=== PATIENT | female | born 1990 | race Caucasian/White ===

== ENCOUNTER 2019-01-29 13:00 | Emergency (ER) | payer SELFPAY ==
[~2019-01-29] VITALS: Ht 162.6 cm; Wt 75.0 kg
[~2019-01-29 13:00] MED LIST: AMOXICILLIN875 MG OR; CONCEPT OB PO; DENIES CURRENT MEDS; INTEGRA F PO; MIRALAX3350 N1 PO; MONISTAT 72 % VA; NAPROSYN500 MG PO; NO HOME MEDS; RHO (D) IMMUN300 MCG IM; TUBERSOL5 MG/0.1 M ID
[2019-01-29 13:38] LABS: HEMATOCRIT 41.2 % (37.0-47.0); HEMOGLOBIN 13.4 g/dl (12.0-16.0); IMMATURE GRANULOCYTES 0.5 % (0.0-5.0); MEAN CELL VOLUME 81.6 fL CALC (80.0-100.0); MEAN CORPUSCULAR HGB 26.5 pG CALC (26.0-32.0); MEAN CORPUSCULAR HGB CONC 32.5 g/L CALC (32.0-36.0); NEUT# 14.88 thou/uL (2.00-7.15); RED BLOOD COUNT 5.05 mill/uL (4.20-5.60); RED CELL DISTRI WIDTH 14.7 % (11.5-15.5)
[2019-01-29 13:53] LABS: URINE BILIRUBIN - DIPSTICK NEGATIVE (NEGATIVE); URINE BLOOD DIPSTICK NEGATIVE (NEGATIVE); URINE COLOR YELLOW; URINE GLUCOSE - DIPSTICK NEGATIVE (NEGATIVE); URINE KETONE NEGATIVE (NEGATIVE); URINE LEUK ESTERASE NEGATIVE (NEGATIVE); URINE NITRITE - DIPSTICK NEGATIVE (Negative); URINE PH 7.5 (4.5-8.0); URINE PROTEIN - DIPSTICK TRACE mg/dL (NEG-TRACE); URINE UROBILINOGEN - DIPSTICK 0.2 E.U./dL (0.2)
[2019-01-29 13:56] LABS: ALBUMIN 4.5 g/dL (3.2-5.0); ALKALINE PHOSPHATASE 77 u/l (38-126); ANION GAP 18 (6-22 (CALC)); BUN 9 mg/dL (7-17); BUN/CREATININE RATIO 13 (12-20 (CALC)); CARBON DIOXIDE 24 mmol/l (22-30); CHLORIDE 102 mmol/l (95-108); CREATININE 0.7 mg/dL (0.5-1.0); GFR > 60 ML/MIN (>=60 (CALC)); GFR FOR AFR.AMER. > 60 ML/MIN (>=60 (CALC)); LIPASE 172 u/l (23-300); POTASSIUM 4.5 mmol/l (3.5-5.1); SGOT/AST 21 u/l (14-36); SODIUM 139 mmol/l (137-146); TOTAL PROTEIN 7.7 g/dL (6.3-8.2)
[2019-01-29 13:57] LABS: BILIRUBIN, TOTAL 0.7 mg/dL (0.0-1.4)
[2019-01-29 14:39] VITALS: BP 124/89
[2019-01-29] MEDS ORDERED: ONDANSETRON4 MG PO (14:39)
== END 2019-01-29 15:12 | disposition home or self-care (01) | DRG 392 ==
LOC: ED 13:00
PROVIDERS: Family Medicine
DX: K52.9 Noninfective gastroenteritis and colitis, unspecified (principal); F17.200 Nicotine dependence, unspecified, uncomplicated
CPT/HCPCS: Q9967

== ENCOUNTER 2021-03-16 12:28 | Observation (INO) | payer OTHER ==
[~2021-03-16] VITALS: Ht 162.6 cm; Wt 97.0 kg
[~2021-03-16 12:28] MED LIST changes: +ONDANSETRON4 MG PO
--- NOTE | 2021-03-16 12:58 | NUR ---
PT TO ROOM FOR TRIAGE WITH STEADY GAIT.
[2021-03-16 13:54] LABS: HEMATOCRIT 41.8 % (37.0-47.0); HEMOGLOBIN 13.5 g/dl (12.0-16.0); IMMATURE GRANULOCYTES 0.2 % (0.0-5.0); MEAN CELL VOLUME 81.8 fL CALC (80.0-100.0); MEAN CORPUSCULAR HGB 26.4 pG CALC (26.0-32.0); MEAN CORPUSCULAR HGB CONC 32.3 g/dL CAL (32.0-36.0); NEUT# 2.28 thou/uL (2.00-7.15); RED BLOOD COUNT 5.11 mill/uL (4.20-5.60); RED CELL DISTRI WIDTH 15.2 % (11.5-15.5)
--- NOTE | 2021-03-16 13:55 | NUR ---
PT STABLE, RESTING. 3L/NC IN PLACE. SATS IMPROVED TO 95%. NO DISTRESS. NO COMPLAINTS VOICED. BED IN LOW POSITION. CALL LIGHT WITHIN REACH.
[2021-03-16 14:02] LABS: ALBUMIN 4.1 g/dL (3.2-5.0); ALKALINE PHOSPHATASE 47 u/l (38-126); ANION GAP 15 (6-22 (CALC)); BILIRUBIN, TOTAL 0.5 mg/dL (0.0-1.4); BUN 7 mg/dL (7-17); BUN/CREATININE RATIO 8 (12-20 (CALC)); CARBON DIOXIDE 25 mmol/l (22-30); CHLORIDE 101 mmol/l (95-108); CREATININE 0.9 mg/dL (0.5-1.0); GFR > 60 ML/MIN (>=60 (CALC)); GFR FOR AFR.AMER. > 60 ML/MIN (>=60 (CALC)); POTASSIUM 3.6 mmol/l (3.5-5.1); SODIUM 137 mmol/l (137-146); TOTAL PROTEIN 7.2 g/dL (6.3-8.2)
[2021-03-16 14:03] LABS: SGOT/AST 47 u/l (14-36)
--- NOTE | 2021-03-16 14:47 | NUR ---
IV MEDS INFUSING WITHOUT DIFFICULTY. BLANKETS PROVIDED. BED IN LOW POSITION. VITALS UPDATED AND STABLE. MONITORING PT ON ROOM AIR TO SEE IF ABLE TO MAINTAIN SATS ABOVE 90%.
--- NOTE | 2021-03-16 15:45 | NUR ---
PT COMPLETED A 6 MIN WALK TEST ON ROOM AIR. SATS FROM 87-91%. NO DISTRESS. SATS DROPPED WITH COUGH. LILIYA DELGADO NOTIFIED.
[2021-03-16 16:03] LABS: URINE BLOOD DIPSTICK MODERATE (NEGATIVE); URINE GLUCOSE - DIPSTICK NEGATIVE (NEGATIVE); URINE KETONE NEGATIVE (NEGATIVE); URINE LEUK ESTERASE NEGATIVE (NEGATIVE); URINE PROTEIN - DIPSTICK 30 mg/dL (NEG-TRACE); URINE SPECIFIC GRAVITY 1.025
[2021-03-16 16:07] LABS: URINE BILIRUBIN - DIPSTICK NEGATIVE (NEGATIVE); URINE COLOR DK. YELLOW; URINE NITRITE - DIPSTICK NEGATIVE (Negative)
[2021-03-16 16:14] LABS: URINE SQUAMOUS EPITHELIAL CELL MODERATE EPI/hpf (0-FEW)
--- NOTE | 2021-03-16 17:00 | NUR ---
PT STABLE. IV MEDS COMPLETED. PENDING ADMISSION.
--- NOTE | 2021-03-16 17:17 | NUR ---
ATTEMPTED TO CALL REPORT TO [facility]. NURSE TO CALL BACK IN 10MINS
--- NOTE | 2021-03-16 17:30 | NUR ---
RECIEVED REPORT FROM OCTOBER, RN
--- NOTE | 2021-03-16 17:38 | NUR ---
REPORT GIVEN TO LEONARDO PANDA ON [facility].
[2021-03-16 17:50] VITALS: BP 114/62
--- NOTE | 2021-03-16 17:50 | NUR ---
PT ARRIVED TO MED SURG ROOM 288 VIA WHEELCHAIR ACCOMPAINED BY ER STAFF. PT IS A/O X3. ASSESSMENT AND VITALS COMPLETED. RESPIRATIONS ARE EVEN AND UNLABORED 96% ON 2L NC. LUNG SOUNDS ARE DIMINISHED.PRODUCTVE COUGH NOTED PER PT. BOWEL SOUNDS ARE ACTIVE, LBM 03/15/21. HEART RHYTHM NORMAL WITH TELE IN PLACE, SR PER ER MONITORING (8610). PULSES STRONG. #20G LAC FLUSHED, SITE APPEARS HEALTHY AND PATENT. SKIN INTACT. PT DENIES OF ANY PAINS OR DISCOMFORTS AT THIS TIME. ALL SAFETY PRECAUTIONS ARE IN PLACE WITH CALL LIGHT IN REACH. ALLERGIES NOTED, ALLERGY BAND AND FALL RISK BAND APPLIED. PT ORIENTED TO ROOM AND CALL SYSTEM. PT EDUCATED ON PRONING/I.S AND CHAIR. ISOLATION PRECAUTIONS ARE IN PLACE. WILL CONTINUE TO MONITOR
--- NOTE | 2021-03-16 20:00 | NUR ---
PHYSICAL ASSESMENT COMPLETE. PT CURRENTLY DENIES PAIN OR DISCOMFORT. SCHEDULED MEDICATIONS AND PRN MEDICATION ADMINISTERED, SEE E-MAR. PT DENIES ANY NEEDS AT THIS TIME. PLAN OF CARE REVIEWED, PT DENIES QUESTIONS, VERBALIZES UNDERSTANDING. ITEMS WITHIN REACH, BED LOCKED IN LOW POSITION W/ BEDRAILS UP X2. CALL RODRIGUEZ WITHIN REACH, AGREES TO CALL PRN.
--- NOTE | 2021-03-16 23:58 | NUR ---
PT LAYING IN BED WITH EYES CLOSED, APPEARS TO BE SLEEPING, APPEARS COMFORTABLE AND IN NO DISTRESS. RESPIRATIONS REGULAR AND UNLABORED. ITEMS REMAIN WITHIN REACH, CALL RODRIGUEZ REMAINS WITHIN REACH. BED REMAINS LOCKED AND IN LOW POSITION WITH BEDRAILS UP X2. WILL CONTINUE TO MONITOR.
[2021-03-17] VITALS: BP 119/59
[2021-03-17 04:00] VITALS: BP 100/65
--- NOTE | 2021-03-17 04:45 | NUR ---
PT RESTING IN BED, NO SIGNS OF DISTRESS NOTED, RESP EVEN AND UNLABORED. PT VOICES NO NEEDS OR COMPLAINTS AT THIS TIME. CALL LIGHT IN REACH, CONTINUE TO MONITOR.
[2021-03-17 06:01] LABS: HEMATOCRIT 40.2 % (37.0-47.0); HEMOGLOBIN 12.7 g/dl (12.0-16.0); IMMATURE GRANULOCYTES 0.6 % (0.0-5.0); MEAN CELL VOLUME 83.6 fL CALC (80.0-100.0); MEAN CORPUSCULAR HGB 26.4 pG CALC (26.0-32.0); MEAN CORPUSCULAR HGB CONC 31.6 g/dL CAL (32.0-36.0); NEUT# 1.67 thou/uL (2.00-7.15); RED BLOOD COUNT 4.81 mill/uL (4.20-5.60); RED CELL DISTRI WIDTH 15.3 % (11.5-15.5)
[2021-03-17 06:31] LABS: ALBUMIN 3.7 g/dL (3.2-5.0); ALKALINE PHOSPHATASE 46 u/l (38-126); BILIRUBIN, TOTAL 0.4 mg/dL (0.0-1.4); BUN 8 mg/dL (7-17); BUN/CREATININE RATIO 12 (12-20 (CALC)); C-REACTIVE PROTEIN 1.7 mg/dL (0-0.9); CARBON DIOXIDE 26 mmol/l (22-30); CHLORIDE 104 mmol/l (95-108); CREATININE 0.7 mg/dL (0.5-1.0); GFR > 60 ML/MIN (>=60 (CALC)); GFR FOR AFR.AMER. > 60 ML/MIN (>=60 (CALC)); SGOT/AST 61 u/l (14-36); SODIUM 138 mmol/l (137-146); TOTAL PROTEIN 6.7 g/dL (6.3-8.2)
[2021-03-17 06:45] LABS: ANION GAP 12 (6-22 (CALC)); POTASSIUM 4.4 mmol/l (3.5-5.1)
--- NOTE | 2021-03-17 07:00 | NUR ---
RECIEVED REPORT FROM LEONARDO TOLEDO
[2021-03-17 07:35] VITALS: BP 100/69
--- NOTE | 2021-03-17 07:35 | NUR ---
PT RESTING IN SEMI FOWLERS POSITION. PT IS A/O X3. ASSESSMENT AND VITALS COMPLETED. RESPIRATIONS ARE EVEN AND UNLABORED ON 2L NC, 92%. LUNG SOUNDS ARE DIMINISHED. NONPRODUCTIVE COUGH NOTED. PT REFUSES MEDICATION TO ASSIST. HEART RHYTHM NORMAL WITH TELE IN PLACE. BOWEL SOUNDS ARE ACTIVE X4. #20G LAC INFUSING WITH IVF PER ORDER, SITE REMAINS HEALTHY AND PATENT. SKIN INTACT. PT DENIES OF ANY PAINS OR DISCOMFORTS AT THIS TIME. PT STATES SHE WANTS TO GO HOME. RAG INSPECTOR EXPLAINED THAT MD WILL BE IN TO DISCUSS POC. PT VERBALZIED UNDERSTANDING. PT EDUCATED ON PRONING/CHAIR/I.S. PT VERBALIZED UNDERSTANDING. ALL SAFETY AND ISOALTION PRECAUTIONS ARE IN PLACE WITH CALL LIGHT IN REACH. WILL CONTINUE TO MONITOR.
--- NOTE | 2021-03-17 09:05 | NUR ---
DR RAMIREZ AND SHAWNA,ANSARAH AT BEDSIDE
--- NOTE | 2021-03-17 09:29 | NUR ---
PT 90% RESTING IN SEMI FOWLERS POSITION ON ROOM AIR. O2 DESAT TO 87% UPON AMBULATING. O2 91-92% ON 2L NC UPON AMBULATING. 93% WHILE RESTING BACK IN BED. EXCERTIONAL SOB NOTED. PT EDUCATED ON BREATHING EXCERISING. ALL SAFTEY PRECAUTIONS ARE IN PLACE WITH CALL LIGHT IN REACH. WILL CONTINUE TO MONITOR
[2021-03-17] MEDS ORDERED: DEXAMETHASON6 MG PO (09:51)
[2021-03-17] MEDS ORDERED: ZITHROMAX250 MG PO (09:51)
[2021-03-17] MEDS ORDERED: ASPIRIN REGULA325 M1 PO (09:52)
[2021-03-17] MEDS ORDERED: ZOFRAN4 MG/TAB PO (09:52)
[2021-03-17] MEDS ORDERED: TESSALON PERLE100 MG PO (09:54)
[2021-03-17] MEDS ORDERED: PROAIR HFA108 MCG/AC IN (10:25)
[2021-03-17 10:30] VITALS: BP 102/63
--- NOTE | 2021-03-17 11:21 | NUR ---
PT RESTING IN SEMI FOWLERS POSITION WATCHING TV.RESPIRATIONS ARE EVEN AND UNLABORED ON 2L NC. #20G LAC INFUSING WITH IVF PER ORDER, SITE REMAINS HEALTHY AND PATENT. TELE MONIOTRING IN PLACE. PT DENIES OF ANY PAINS OR DISCOMFORTS. INFORMED OF WAIT FOR HOME OXYGEN TIME. PT VERBALIZED UNDERSTANDING. ALL SAFETY PRECAUTIONS ARE IN PLACE WITH CALL LIGHT IN REACH. WILL CONTINUE TO MONITOR.
[2021-03-17 14:36] VITALS: BP 99/69
--- NOTE | 2021-03-17 16:17 | NUR ---
PT EDUCATED ON DC INSTRUCTIONS, NEW MEDICATIONS SENT TO [facility] AND HOME O2. PT VERBLAIZED UNDERSTANDING. IV REMOVED BWITH CATH STILL INTACT. TELE MONITORING REMOVED. ER NOTIFIED. TRANSPORTATION CALLED. WILL CONTINUE TO MONITOR.
--- NOTE | 2021-03-17 16:35 | NUR ---
Discharge instructions given. Patient verbalizes understanding of same. Discharged in stable condition via Wheelchair to Home with staff. All belongings sent with pt. PT DC HOME WITH ALL DC INSTRUCTIONS, PERSONAL BELONGINGS AND HOME O2 SYSTEM IN STABLE CONDITION ACCOMPAINED BY JARETH CNA.
--- NOTE | 2021-03-19 10:49 | NUR ---
Pneumonia post discharge follow up call completed today. Pt. states she is doing fairly well. She is using oxygen most of the time, day and night. Oxygen saturation remains around 91. Pt. obtrained prescribed medications and has been taking without issue. No follow up appt has been scheduled. Pt. states she does not have a PCP. Explained I cannot make surggestions as it is her decision. I did discuss possible options she could pursue. Pt. staes she will call someone today and make an appointment. No needs or concerns expressed by patient at this time. Appreciative of call.
== END 2021-03-17 16:53 | disposition home or self-care (01) ==
LOC: ED 12:28 → ED-I 15:05 → ED 15:16 → ED-I 15:17 → MS2 17:25
PROVIDERS: Emergency Medicine; Nurse Practitioner; ADMIT Hospitalist; ATTEND Hospitalist
DX: U07.1 COVID-19 (principal); J12.82 Pneumonia due to coronavirus disease 2019; R09.02 Hypoxemia; J45.909 Unspecified asthma, uncomplicated; F17.210 Nicotine dependence, cigarettes, uncomplicated
CPT/HCPCS: G0378; J1650

== ENCOUNTER 2021-12-29 19:21 | Emergency (ER) | payer OTHER ==
[~2021-12-29] VITALS: Ht 162.6 cm; Wt 100.0 kg
[~2021-12-29 19:21] MED LIST changes: +ASPIRIN REGULA325 M1 PO; +DEXAMETHASON6 MG PO; +PROAIR HFA108 MCG/AC IN; +TESSALON PERLE100 MG PO; +ZITHROMAX250 MG PO; +ZOFRAN4 MG/TAB PO
[2021-12-29 19:59] LABS: HEMATOCRIT 37.4 % (37.0-47.0); HEMOGLOBIN 11.9 g/dl (12.0-16.0); IMMATURE GRANULOCYTES 0.2 % (0.0-5.0); MEAN CELL VOLUME 86.4 fL CALC (80.0-100.0); MEAN CORPUSCULAR HGB 27.5 pG CALC (26.0-32.0); MEAN CORPUSCULAR HGB CONC 31.8 g/dL CAL (32.0-36.0); NEUT# 5.74 thou/uL (2.00-7.15); RED BLOOD COUNT 4.33 mill/uL (4.20-5.60); RED CELL DISTRI WIDTH 15.4 % (11.5-15.5)
[2021-12-29 20:13] LABS: ALBUMIN 4.1 g/dL (3.2-5.0); BILIRUBIN, TOTAL 0.4 mg/dL (0.0-1.4); BUN 6 mg/dL (7-17); BUN/CREATININE RATIO 6 (12-20 (CALC)); CARBON DIOXIDE 25 mmol/l (22-30); CHLORIDE 105 mmol/l (95-108); CREATININE 0.9 mg/dL (0.5-1.0); GFR FOR AFR.AMER. > 60 ML/MIN (>=60 (CALC)); GFR OTHER RACES > 60 ML/MIN (>=60 (CALC)); SGOT/AST 25 u/l (14-36); SODIUM 139 mmol/l (137-146)
[2021-12-29 20:14] LABS: ALKALINE PHOSPHATASE 71 u/l (38-126); ANION GAP 12 (6-22 (CALC)); POTASSIUM 3.4 mmol/l (3.5-5.1)
[2021-12-29 20:15] VITALS: BP 117/82
[2021-12-29 20:30] VITALS: BP 109/70
[2021-12-29 20:30] LABS: BETA-HCG, QUANT(RESULT NUMBER) 13 mIU/mL
[2021-12-29 20:49] VITALS: BP 109/70
== END 2021-12-29 20:58 | disposition home or self-care (01) ==
LOC: ED 19:21
PROVIDERS: Nurse Practitioner
DX: O20.0 Threatened abortion (principal); O99.331 Smoking (tobacco) complicating pregnancy, first trimester; F17.200 Nicotine dependence, unspecified, uncomplicated; Z3A.01 Less than 8 weeks gestation of pregnancy

== ENCOUNTER 2022-01-30 23:30 | Emergency (ER) | payer BC, OTHER ==
[~2022-01-30] VITALS: Ht 162.6 cm; Wt 97.7 kg
[2022-01-30 23:45] VITALS: BP 123/84
[2022-01-31] VITALS: BP 120/77
[2022-01-31 00:15] VITALS: BP 111/74
[2022-01-31] MEDS ORDERED: BACTRIM DS1 TAB PO (00:28)
[2022-01-31] MEDS ORDERED: GENTAMICIN SULF5 ML OU (00:28)
[2022-01-31 00:30] VITALS: BP 116/75
[2022-01-31 00:31] VITALS: BP 116/75
== END 2022-01-31 00:39 | disposition home or self-care (01) | DRG 153 ==
LOC: ED 23:30
DX: J01.90 Acute sinusitis, unspecified (principal); B96.89 Other specified bacterial agents as the cause of diseases classified elsewhere; H10.9 Unspecified conjunctivitis; F17.200 Nicotine dependence, unspecified, uncomplicated; Z20.822 Contact with and (suspected) exposure to COVID-19

== ENCOUNTER 2022-03-12 21:11 | Emergency (ER) | payer BC, OTHER ==
[~2022-03-12] VITALS: Ht 162.6 cm; Wt 95.0 kg
[~2022-03-12 21:11] MED LIST changes: +BACTRIM DS1 TAB PO; +GENTAMICIN SULF5 ML OU
[2022-03-12 21:17] VITALS: BP 128/79
[2022-03-12 21:31] VITALS: BP 132/85
[2022-03-12] MEDS ORDERED: CORTISPORIN OTI10 ML AD (21:34)
== END 2022-03-12 22:07 | disposition home or self-care (01) | DRG 156 ==
LOC: ED 21:11
PROC: 3E0234Z Introduction of Serum, Toxoid and Vaccine into Muscle, Percutaneous Approach (ICD-10-PCS; principal; 2022-03-12)
DX: H60.91 Unspecified otitis externa, right ear (principal); F17.210 Nicotine dependence, cigarettes, uncomplicated; Z23 Encounter for immunization

== ENCOUNTER 2022-04-01 13:46 | Emergency (ER) | payer OTHER, BC ==
[~2022-04-01] VITALS: Ht 162.6 cm; Wt 90.0 kg
[~2022-04-01 13:46] MED LIST changes: +CORTISPORIN OTI10 ML AD
[2022-04-01 15:19] VITALS: BP 134/87
== END 2022-04-01 15:25 | disposition home or self-care (01) | DRG 563 ==
LOC: ED 13:46
DX: S63.502A Unspecified sprain of left wrist, initial encounter (principal); M25.512 Pain in left shoulder; F17.210 Nicotine dependence, cigarettes, uncomplicated; V49.40XA Driver injured in collision with unspecified motor vehicles in traffic accident, initial encounter

== ENCOUNTER 2022-08-02 20:58 | Emergency (ER) | payer BC, OTHER ==
[~2022-08-02] VITALS: Ht 162.6 cm; Wt 100.0 kg
[2022-08-02] MEDS ORDERED: PRENATAL1 TA1 PO (21:52)
[2022-08-02 22:50] VITALS: BP 105/77
[2022-08-02 23:00] VITALS: BP 109/70
[2022-08-02 23:15] VITALS: BP 102/66
[2022-08-02 23:30] VITALS: BP 104/67
[2022-08-02 23:43] LABS: URINE BILIRUBIN - DIPSTICK NEGATIVE (NEGATIVE); URINE COLOR YELLOW; URINE GLUCOSE - DIPSTICK NEGATIVE (NEGATIVE); URINE KETONE NEGATIVE (NEGATIVE); URINE LEUK ESTERASE NEGATIVE (NEGATIVE); URINE PH 5.5 (4.5-8.0); URINE PROTEIN - DIPSTICK NEGATIVE (NEG-TRACE); URINE SPECIFIC GRAVITY 1.015; URINE UROBILINOGEN - DIPSTICK 0.2 E.U./dL (0.2)
[2022-08-02 23:45] VITALS: BP 106/67
[2022-08-02 23:46] LABS: URINE BLOOD DIPSTICK NEGATIVE (NEGATIVE); URINE NITRITE - DIPSTICK NEGATIVE (Negative)
[2022-08-03] VITALS: BP 107/67
[2022-08-03 00:15] VITALS: BP 105/65
[2022-08-03 00:30] VITALS: BP 102/66
[2022-08-03 00:45] VITALS: BP 115/77
[2022-08-03 01:00] VITALS: BP 116/79
[2022-08-03 05:00] VITALS: BP 116/79
== END 2022-08-03 05:05 | disposition home or self-care (01) | DRG 833 ==
LOC: ED 20:58
PROVIDERS: Emergency Medicine
DX: O26.891 Other specified pregnancy related conditions, first trimester (principal); Z3A.11 11 weeks gestation of pregnancy; R10.9 Unspecified abdominal pain

== ENCOUNTER 2024-06-11 15:58 | Emergency (ER) | payer BC ==
[~2024-06-11] VITALS: Ht 162.6 cm; Wt 95.2 kg
[2024-06-11] VITALS (7 sets, daily range): BP systolic 110–132; BP diastolic 64–81
[~2024-06-11 15:58] MED LIST changes: +AMOX/K CLAV875 M1 PO; +PRENATAL1 TA1 PO; +ZPAK PO
[2024-06-11] MEDS ORDERED: methylPREDNISolone SODIUM SUCC 125 MG/2 ML SDV IV ONE (16:05)
[2024-06-11] MEDS ORDERED: DiphenhydrAMINE HCL 50 MG/ML SDV IV ONE (16:05)
[2024-06-11] MEDS ORDERED: SODIUM CHLORIDE 0.9% 1,000 ML IV ONE (16:05)
[2024-06-11] MEDS ORDERED: FAMOTIDINE 10MG/ML 2ML SDV IV ONE (16:05)
[2024-06-11] MEDS ORDERED: PREDNISONE20 MG PO (17:10)
== END 2024-06-11 18:40 | disposition home or self-care (01) | DRG 918 ==
LOC: ED 15:58
DX: T63.461A Toxic effect of venom of wasps, accidental (unintentional), initial encounter (principal); F17.200 Nicotine dependence, unspecified, uncomplicated
CPT/HCPCS: J1200

== ENCOUNTER 2024-07-08 08:27 | Emergency (ER) | payer BC ==
[2024-07-08] VITALS (7 sets, daily range): BP systolic 104–123; BP diastolic 66–80
[~2024-07-08] VITALS: Ht 162.6 cm; Wt 95.0 kg
[~2024-07-08 08:27] MED LIST changes: +PREDNISONE20 MG PO
[2024-07-08 09:09] LABS: BASO% 0.6 % (0-3); EOS% 6.9 % (0-8); HEMATOCRIT 34.4 % (37.0-47.0); IMMATURE GRANULOCYTES 0.2 % (0.0-5.0); LYMPH% 34.3 % (15-41); MEAN CELL VOLUME 74.9 fL CALC (80.0-100.0); MONO% 7.5 % (2-13); NEUT# 2.69 thou/uL (2.00-7.15); NEUT% 50.5 % (42-76); RED BLOOD COUNT 4.59 mill/uL (4.20-5.60); RED CELL DISTRI WIDTH 17.6 % (11.5-15.5)
[2024-07-08 09:20] LABS: HCG SERUM/URINE (NEG/POS) NEGATIVE (NEGATIVE)
[2024-07-08 09:23] LABS: CREATININE 0.7 mg/dL (0.5-1.0); POTASSIUM 3.3 mmol/l (3.5-5.1)
[2024-07-08 09:35] LABS: BILIRUBIN, TOTAL 0.4 mg/dL (0.02-1.3)
== END 2024-07-08 10:15 | disposition home or self-care (01) | DRG 195 ==
LOC: ED 08:27
PROVIDERS: Family Medicine
DX: J18.9 Pneumonia, unspecified organism (principal)